=== PATIENT | female | born 1965 | race Caucasian/White ===

== ENCOUNTER 2018-11-20 18:12 | Emergency (ER) | payer SELFPAY ==
[~2018-11-20] VITALS: Ht 162.6 cm; Wt 81.9 kg
[~2018-11-20 18:12] MED LIST: CEPH-443 PO; OMEP20CA17 PO; ONDA8TAB14 PO
[2018-11-20 18:14] VITALS: Ht 162.6 cm; Wt 81.9 kg
[2018-11-20] MEDS ORDERED: FAMOTIDINE 20 MG TAB PO STA (21:20)
[2018-11-20] MEDS ORDERED: LIDOCAINE/MYLANTA 40 ML BTL PO STA (21:20)
[2018-11-20] MEDS ORDERED: ONDANSETRON 4 MG INJ IV STA (21:20)
[2018-11-20] MEDS ORDERED: CEFTRIAXONE 1 GM/50 ML (PMX) 50 ML IVPB ONE (23:30)
[2018-11-21 00:48] VITALS: BP 148/76; PULSE 56; RESP 18
== END 2018-11-21 00:56 | disposition home or self-care (01) ==
LOC: E/R 18:12
DX: N39.0 Urinary tract infection, site not specified (principal)
CPT/HCPCS: 74176; 80053; 81001; 83690; 84484; 85025; 93005; 96365; 96375; 99285; J0696; J2405